=== PATIENT | female | born 1990 | race American Indian/Alaskan Native ===

== ENCOUNTER 2016-08-08 11:51 | Emergency (ER) | payer MEDICAID ==
[~2016-08-08] VITALS: Ht 167.6 cm; Wt 93.8 kg
[2016-08-08 12:58] LABS: HEMOGLOBIN 14.6 g/dL (11.7-16.4)
[2016-08-08 13:18] LABS: ASPARTATE AMINO TRANSFERASE 15 U/L (15-37); BLOOD UREA NITROGEN 12 mg/dL (7-18)
[2016-08-08] MEDS ORDERED: MAALOX/HYOSCYAMINE/LIDOCAINE 45 ML BOTTLE ONE (15:15)
[2016-08-08 15:23] VITALS: BP 105/64
[2016-08-08] MEDS ORDERED: MAALOX/HYOSCYAMINE/LIDOCAINE 45 ML BOTTLE PO ONE (15:30)
[2016-08-08] MEDS ORDERED: CEFTRIAXONE 1,000 MG IM ONE (17:00)
[2016-08-08] MEDS ORDERED: CEFTRIAXONE 1,000 MG ONE (17:14)
[2016-08-08] MEDS ORDERED: LIDOCAINE 1%, 20ML ONE (17:14)
== END 2016-08-08 17:33 | disposition home or self-care (01) ==
LOC: ED 16:55
DX: N10 Acute pyelonephritis (principal); K21.9 Gastro-esophageal reflux disease without esophagitis; Z88.0 Allergy status to penicillin
CPT/HCPCS: 36415; 76700; 80053; 81001; 83690; 84703; 85025; 87086; 96372; 99285; J0696

== ENCOUNTER 2016-09-27 18:15 | Emergency (ER) | payer MEDICAID ==
[~2016-09-27] VITALS: Ht 167.6 cm; Wt 95.5 kg
[2016-09-27 19:16] LABS: PATH.CAST-FLAG NOT PRESENT; SPERM-FLAG NOT PRESENT; SRC-FLAG NOT PRESENT; XTAL-FLAG NOT PRESENT; YLC-FLAG NOT PRESENT
[2016-09-27 19:17] LABS: BLOOD UREA NITROGEN 15 mg/dL (7-18)
[2016-09-27 19:20] LABS: HCG UR OBC PASS
[2016-09-27 20:45] VITALS: BP 125/71
== END 2016-09-27 22:14 | disposition home or self-care (01) ==
LOC: ED 19:22
DX: R10.9 Unspecified abdominal pain (principal); R31.29 Other microscopic hematuria
CPT/HCPCS: 36415; 74176; 80048; 81003; 81025; 82040; 85025